=== PATIENT | male | born 1985 ===

== ENCOUNTER 2023-04-10 10:39 | Outpatient (CLI) | payer OTHER ==
--- NOTE | 2023-04-12 07:12 | MRI Report ---
PROCEDURE: LUMBAR SPINE WO INDICATIONS: LOW BACK PAIN TECHNIQUE: Noncontrast sagittal T1 spin echo and T2 fast echo, sagittal STIR, axial T1 and T2 fast spin echo thr ough the lumbar spine. In cases with scoliosis, additional coronal T2 fast spin echo may be performe d. COMPARISON: None. FINDINGS: Image quality: Excellent. Alignment and Curvature: There is normal bony alignment. Bone Marrow: Marrow is of normal overall signal. No acute vertebral body compression fractures. Spinal Cord: Conus medullaris terminates at the L1-L2 level. Visualized cord demonstrates normal si gnal and size. Paraspinous Soft Tissues: No paravertebral masses. T12-L1: Normal in appearance. L1-L2: Normal in appearance. L2-L3: Mild facet hypertrophy. No canal stenosis or foraminal stenosis. L3-L4: Mild facet hypertrophy. No canal stenosis or foraminal stenosis. L4-L5: Mild disc bulge. Mild facet hypertrophy. Borderline canal stenosis. Mild bilateral foraminal stenosis. L5-S1: Disc bulge. Mild facet hypertrophy. No canal stenosis or foraminal stenosis. IMPRESSION: 1. Mild multilevel facet hypertrophy. 2. Borderline canal stenosis at L4-L5. Reviewed by: Corey Segovia MD on 04/12/2023 7:11 AM PST Approved by: Corey Segovia MD on 04/12/2023 7:11 AM PST Station ID: [id number]
== END 2023-04-10 10:40 | disposition home or self-care (01) ==
LOC: DI 10:39
DX: M51.36 Other intervertebral disc degeneration, lumbar region (principal); M48.061 Spinal stenosis, lumbar region without neurogenic claudication; M47.816 Spondylosis without myelopathy or radiculopathy, lumbar region